=== PATIENT | female | born 1970 | race Caucasian/White ===

== ENCOUNTER 2021-05-25 21:04 | Emergency (ER) | payer OTHER, SELFPAY ==
[~2021-05-25] VITALS: Ht 167.6 cm; Wt 86.2 kg
[2021-05-25 21:10] VITALS: BP_SYST 128
--- NOTE | 2021-05-25 21:15 | NUR ---
Placed in room 4 . Placed on hall monitor, blood pressure machine and pulse oximeter. To gown for exam. Side rails up. Report given to Man CAGLE.
--- NOTE | 2021-05-25 21:16 | NUR ---
ER at bedside examining patient.
--- NOTE | 2021-05-25 22:30 | NUR ---
PATIENT VERBALIZED UNDERSTANDING OF AFTERCARE INSTRUTIONS. PATIENT LEFT WITH PATIENT'S BELONGINGS AND ALL AFTERCARE INSTRUCTIONS. PATIENT WALKS WITH STRONG GAIT.
[2021-05-26 03:10] VITALS: BP_SYST 127
== END 2021-05-25 22:30 | disposition home or self-care (01) ==
LOC: SED 21:04
DX: F41.0 Panic disorder [episodic paroxysmal anxiety] (principal); Z88.8 Allergy status to other drugs, medicaments and biological substances
CPT/HCPCS: 93005; 99283